=== PATIENT | female | born 1955 | race Hispanic/Latino ===

== ENCOUNTER → 2022-12-28 | Outpatient (CLI) | payer MEDICARE ==
[~2022-12-28] MED LIST: BAYER ASPIRIN325 M1 PO; Z CIPRO PO; Z.0.ATENOLOL25 MG PO; Z.0.GLYBURIDE5 MG PO; Z.0.LISINOPRIL20 MG PO; Z.0.METFORMIN HCL100; Z.0.METRONIDAZOLE500 PO; Z.0.SIMVASTATIN20 MG PO
== END ==
LOC: MAMMO 13:21
PROVIDERS: ATTEND Internal Medicine
DX: Z12.31 Encounter for screening mammogram for malignant neoplasm of breast (principal); Z13.820 Encounter for screening for osteoporosis
CPT/HCPCS: 77067; 77080